=== PATIENT | female | born 1985 | race Caucasian/White ===

== ENCOUNTER 2024-08-03 15:53 | Emergency (ER) | payer OTHER, SELFPAY ==
--- NOTE | ~2024-08-03 | XR_ITS ---
EXAM: XR toe 5th LT min 2V DATE: 08/03/2024 17:06 HISTORY: stubbed 2 wks ago. Persistent pain . COMPARISON: None available. FINDINGS: Normal mineralization. Nondisplaced appearing transverse fracture of the distal aspect of the left fifth proximal phalanx, noting that a true lateral view is not provided. No lytic or blastic lesion. Joint spaces and physes are maintained. No erosion or periosteal change. Soft tissues within normal limits. IMPRESSION: Likely nondisplaced transverse fracture of the distal aspect of the left fifth proximal p halanx. Reviewed, dictated and finalized at location [facility] [employer] IMPRESSION: Likely nondisplaced transverse fracture of the distal aspect of the left fifth proximal phalanx.
[2024-08-03 16:44] VITALS: BP 105/74; PULSE 80; RESP 16; TEMP 37.1; O2SAT 99
--- NOTE | 2024-08-03 16:49 | ED_ITS ---
HPI - Extremity Injury (Lower) General Chief Complaint: Extremity Injury, Lower Stated Complaint: Left foot/pinky toe injury Time Seen by Provider: 08/03/24 16:38 Source: patient and RN notes reviewed Mode of arrival: ambulatory Limitations: no limitations History of Present Illness HPI Narrative: Patient presents today complaining of a 16 day history of pain in the left 5th toe after she stubbed it walking into a door frame on accident. She has tried some ibuprofen with little relief and came in today for evaluation of persistent pain. Related Data Home Medications ?Medication ?Instructions ?Recorded ?Confirmed ?Last Taken ?Type Bacillus coagulans 10 billion cell cell PO 05/23/24 05/23/24 Unknown History capsule,delayed release (Probiotic (B. coagulans)) cetirizine 10 mg capsule (Zyrtec) 10 mg PO DAILY PRN 05/23/24 05/23/24 Unknown History cholecalciferol (vitamin D3) 50 50 mcg PO DAILY 05/23/24 05/23/24 Unknown Hist ory mcg (2,000 unit) capsule multivitamin with iron 1 tablet PO DAILY 05/23/24 05/23/24 Unknown History omega 2-rtk-hsw-fish oil 300 1 cap PO DAILY 05/23/24 05/23/24 Unknown History mg-1,000 mg capsule (Fish Oil) Allergies Allergy/AdvReac Type Severity Reaction Status Date / Time Sulfa (Sulfonamide Allergy Intermediate Rash Verified 05/23/24 11:05 Antibiotics) Review of Systems Review of Systems: CONSTITUTIONAL: Denies body aches, fever, chills, or sweats. EYES: Denies visual changes, redness, or discharge. ENT: Denies rhinorrhea, congestion, sore throat, or otalgia. CARDIOVASCULAR: Denies chest pain, palpitations, or edema. RESPIRATORY: Denies cough or dyspnea. GASTROINTESTINAL: Denies abdominal pain, nausea, vomiting, or diarrhea. GENITOURINARY: Denies dysuria or hematuria. SKIN: Denies rash, itching, or wounds. MUSCULOSKELETAL: + left 5th toe pain NEUROLOGIC: Denies headache, numbness, tingling, or weakness. PSYCH: Denies depression or anxiety. [facility] Past Medical History Medical History Deviated septum Family History Family History Mother Alcoholism Thyroid cancer Breast cancer Depression Anxiety Thyroid disorder Father Diabetes mellitus Depression Anxiety Grandparent Breast cancer Ovarian cancer Social History Social History Smoking status: Never smoker Alcohol intake: current Drinks per week: 7 Alcohol use details: red wine fri/sat Substance use: never Comments At time of signature, I have reviewed and agree with nursing past medical, surgical, social and family history unless otherwise noted. Please see nursing chart for further information. There is no relevant family history pertinent to the presenting complaint Exam Narrative: GENERAL: Well-appearing, well-nourished, and in no acute distress. HEAD: Normocephalic, atraumatic. EYES: EOMI. No redness or drainage. Conjunctivae normal. ENT: Mucous membranes pink and moist. NECK: Normal AROM. CHEST: No respiratory distress. EXTREMITIES: Left 5th toe: Tender to palpation. No edema, ecchymosis noted. Patient does have some faint edema at the base toes 2 through 4, but is not tender in these toes or metatarsals. Distal sensation intact. Capillary refill normal. Pedal pulse normal. SKIN: Warm, dry, no rash. Capillary refill normal. Normal skin turgor. NEURO: No focal deficits. Alert and oriented x3. Gait steady. PSYCH: Normal affect. No signs of depression or anxiety. Course Course Level of Care: Express Care Visit Vital Signs Vital signs: Vital Signs Temperature 98.7 F 08/03/24 16:44 Pulse Rate 80 08/03/24 16:44 Respiratory Rate 16 08/03/24 16:44 Blood Pressure 105/74 08/03/24 16:44 Pulse Oximetry 99 08/03/24 16:44 Oxygen Delivery Room Air 08/03/24 16:44 Temperature 98.7 F 08/03/24 16:44 Pulse Rate 80 08/03/24 16:44 Respiratory Rate 16 08/03/24 16:44 Blood Pressure 105/74 08/03/24 16:44 Pulse Oximetry 99 08/03/24 16:44 Oxygen Delivery Room Air 08/03/24 16:44 Procedures Orthopedic Splinting/Casting Injury #1: Splinting/Casting Date: 08/03/24 Splinting/Casting Time: 17:32 Side: left Lower Extremity Injury Location: toe Lower Extremity Immobilizer: post-op shoe Additional Comments: placed by RN MDM - Extremity Injury (Lower) MDM Narrative Medical decision making narrative: X-ray shows transverse fracture of the proximal phalanx. Patient would like a postop shoe to help with her discomfort. Anticipatory guidance given. Differential Diagnosis Differential diagnosis: Likely fracture of toe and other (Contusion) Imaging Data Radiologist's impression: ITS Impressions Toe X-Ray 08/03/24 17:19 IMPRESSION: Likely nondisplaced transverse fracture of the distal aspect of the left fifth proximal phalanx. Critical Care Time Critical Care Time Critical Care Time: No Discharge Plan Discharge Clinical Impression: Fracture of toe of left foot Qualifiers: Encounter type: initial encounter Toe: lesser toe Fracture type: closed Phalanx: proximal Fracture alignment: nondisplaced Qualified Code(s): S92.515A - Nondisplaced fracture of proximal phalanx of left lesser toe(s), initial encounter for closed fracture Patient Disposition: Home, Self-Care Condition: Stable Instructions: Toe Fracture (ED) Additional Instructions: Wear the postop shoe for comfort. Take Tylenol or ibuprofen for pain if needed. Follow-up with your PCP or medical device sales if pain persists for longer than the next 3-4 weeks. Patient Language: Tristanian Prescriptions: No Action Zyrtec 10 mg capsule 10 mg PO DAILY PRN multivitamin with iron Tablet 1 tablet PO DAILY omega 8-joi-lkp-fish oil [Fish Oil] 300-1,000 mg capsule 1 cap PO DAILY cholecalciferol (vitamin D3) 50 mcg (2,000 unit) capsule 50 mcg PO DAILY Probiotic (B. coagulans) 10 billion cell capsule,delayed release(DR/EC) PO Follow-up/Referrals: Palmira Courtney DO [Primary Care Provider] - Time of Disposition: 17:31
== END 2024-08-03 17:41 | disposition home or self-care (01) ==
PROVIDERS: Emergency Provider Nurse Practitioner; PCP Family Medicine
DX: S92.515A Nondisplaced fracture of proximal phalanx of left lesser toe(s), initial encounter for closed fracture (principal); W22.09XA Striking against other stationary object, initial encounter
CPT/HCPCS: 73660; 99214; G0463